=== PATIENT | male | born 1975 | race Asian ===

== ENCOUNTER → 2019-01-13 12:45 | Outpatient (CLI) | payer OTHER, SELFPAY ==
[2019-01-13 12:49] LABS: Bacteria Urine None Seen; RBC Urine None Seen (0-5/HPF)
[2019-01-13 13:13] LABS: Appearance Urine UA CLEAR; Bilirubin Urine UA NEGATIVE (NEGATIVE); Color Urine UA YELLOW; Glucose Urine UA NEGATIVE (Negative); Ketones Urine UA NEGATIVE (NEGATIVE); Leukocyte Esterase Urine UA NEGATIVE (NEGATIVE); Nitrite Urine UA NEGATIVE (Negative); Occult Blood Urine UA TRACE-INTACT (Negative); Protein Urine UA 1+ (Negative); Specific Gravity Urine UA 1.025 (1.000-1.035); Urobilinogen Urine UA 0.2 E.U./dL (0.2); pH Urine UA 5.5 (4.5-8.0)
[2019-01-13 13:16] LABS: Hematocrit 50.3 % (41-53); Hemoglobin 17.3 g/dL (13.5-17.5); Mean Corpuscular HGB Conc 34.3 % (30-36); Mean Corpuscular Volume 90.3 fL (80-100); Platelet Count 192 X10^3/uL (150-400); Red Blood Cell Count 5.57 X10^6/uL (4.5-5.9); Red Cell Distribution Width 12.8 % (11.6-14.8); White Blood Cell Count 7.2 X10^3/uL (4.5-11.0)
[2019-01-13 13:45] LABS: Alanine Aminotransferase 71 IU/L (21-72); Albumin 4.6 g/dL (3.5-5.0); Albumin Globulin Ratio 1.4 (1.0-2.8); Alkaline Phosphatase 116 U/L (38-126); Aspartate Aminotransferase 39 IU/L (17-59); BUN Creatinine Ratio 14.4 (6-22); Bilirubin Total 0.7 mg/dL (0.2-1.3); Blood Urea Nitrogen 13 mg/dL (9-20); Calcium 9.1 mg/dL (8.4-10.2); Carbon Dioxide 25 mmol/L (22-32); Chloride 105 mmol/L (98-107); Cholesterol 176 mg/dL (140-199); Estimated Glomerular Filt Rate > 60.0 mL/min (>60); Globulin 3.3 g/dL (1.7-4.1); Glucose 118 mg/dL (70-100); HDL Cholesterol 37 mg/dL (40-60); HEMOLYSIS < 15 (0-50); LDL Cholesterol Calculated 94 mg/dL (<100); Potassium 4.1 mmol/L (3.4-5.1); Sodium 141 mmol/L (137-145); Total Protein 7.9 g/dL (6.3-8.2); Triglycerides 226 mg/dL (35-150)
[2019-01-13 14:12] LABS: Culture Indicated Urine Cult Not Indicated; Mucus Urine 1+ (Negative); WBC Urine 1-5/HPF (0-5/HPF)
[2019-01-13 14:16] LABS: Prostate Specific Antigen Scrn 3.53 ng/mL (0.1-4.0); TSH w/ Reflex to FT4 1.75 uIU/mL (0.47-4.68)
[2019-01-13 14:34] LABS: Vitamin B12 609 pg/mL (239-931)
[2019-01-15 16:00] LABS: Hepatitis A Antibody Total Nonreactive (Nonreactive)
[2019-01-15 16:18] LABS: Hepatitis B Surf AB Imm QUANT < 5 mIU/mL (> 9)
[2019-01-16 23:48] LABS: Testosterone Total 410 ng/dL (250-1100)
== END ==
PROVIDERS: PCP Nurse Practitioner Family; Visit Provider Nurse Practitioner Family
DX: Z01.84 Encounter for antibody response examination (principal); Z13.6 Encounter for screening for cardiovascular disorders; R53.83 Other fatigue; R39.12 Poor urinary stream
CPT/HCPCS: 36415; 80053; 80061; 81001; 82607; 84402; 84403; 84443; 85027; 86317; 86708; G0103

== ENCOUNTER → 2019-04-28 15:46 | Outpatient (CLI) | payer OTHER, SELFPAY ==
[2019-04-28 18:27] LABS: Prostate Specific Antigen 3.29 ng/mL (0.10-4.00)
== END ==
PROVIDERS: Family Provider Nurse Practitioner Family; PCP Nurse Practitioner Family; Visit Provider Urology
DX: N40.0 Benign prostatic hyperplasia without lower urinary tract symptoms (principal)
CPT/HCPCS: 36415; 84153

== ENCOUNTER → 2020-01-19 09:40 | Outpatient (CLI) | payer OTHER, SELFPAY ==
--- NOTE | 2020-01-19 09:43 | DI.RAD.S_ITS ---
PROCEDURE: XR KNEE LT 3V INDICATIONS: left knee pain TECHNIQUE: 3 views of the knee were acquired. COMPARISON: None. FINDINGS: Bones: No fractures or dislocations. No suspicious bony lesions. Mild medial and patellofemoral degenerative compartment narrowing. Patellar spur is noted. Soft tissues: Moderate joint effusion. No suspicious soft tissue calcifications. IMPRESSION: Moderate effusion. Dictated by: Caridad Skinner M.D. on 01/19/2020 at 14:35 Approved by: Caridad Skinner M.D. on 01/19/2020 at 14:36
== END ==
PROVIDERS: Family Provider Nurse Practitioner Family; PCP Nurse Practitioner Family; Referring Provider Nurse Practitioner Family; Visit Provider Nurse Practitioner Family
DX: M25.562 Pain in left knee (principal); M25.462 Effusion, left knee
CPT/HCPCS: 73562

== ENCOUNTER → 2020-01-20 08:53 | Outpatient (CLI) | payer OTHER, SELFPAY ==
[2020-01-20 09:34] LABS: Hematocrit 48.4 % (41-53); Hemoglobin 16.3 g/dL (13.5-17.5); Mean Corpuscular HGB Conc 33.7 % (30-36); Mean Corpuscular Hemoglobin 30.5 PG (26-34); Mean Corpuscular Volume 90.6 fL (80-100); Platelet Count 174 X10^3/uL (150-400); Red Blood Cell Count 5.34 X10^6/uL (4.5-5.9); Red Cell Distribution Width 12.5 % (11.6-14.8); White Blood Cell Count 7.2 X10^3/uL (4.5-11.0)
[2020-01-20 10:07] LABS: Alanine Aminotransferase 79 IU/L (<50); Albumin 4.3 g/dL (3.5-5.0); Albumin Globulin Ratio 1.5 (1.0-2.8); Alkaline Phosphatase 101 U/L (38-126); Aspartate Aminotransferase 44 IU/L (17-59); BUN Creatinine Ratio 14.9 (6-22); Bilirubin Total 0.7 mg/dL (0.2-1.3); Blood Urea Nitrogen 14 mg/dL (9-20); Calcium 8.8 mg/dL (8.4-10.2); Carbon Dioxide 25 mmol/L (22-32); Chloride 104 mmol/L (98-107); Estimated Glomerular Filt Rate > 60.0 mL/min (>60); Globulin 2.9 g/dL (1.7-4.1); Glucose 112 mg/dL (70-100); HEMOLYSIS < 15 (0-50); Potassium 4.3 mmol/L (3.4-5.1); Sodium 137 mmol/L (137-145); Total Protein 7.2 g/dL (6.3-8.2)
[2020-01-20 10:35] LABS: TSH w/ Reflex to FT4 2.81 uIU/mL (0.47-4.68)
== END ==
PROVIDERS: Family Provider Nurse Practitioner Family; PCP Nurse Practitioner Family; Referring Provider Nurse Practitioner Family; Visit Provider Nurse Practitioner Family
DX: Z00.00 Encounter for general adult medical examination without abnormal findings (principal); L65.9 Nonscarring hair loss, unspecified
CPT/HCPCS: 36415; 80053; 83036; 84443; 85027

== ENCOUNTER 2020-09-04 16:18 | Emergency (ER) | payer OTHER, SELFPAY ==
[2020-09-04 16:31] VITALS: TEMP 36.4
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
== END 2020-09-04 19:32 | disposition left against medical advice (07) ==
PROVIDERS: Emergency Provider Emergency Medicine; Family Provider Nurse Practitioner Family; PCP Nurse Practitioner Family
DX: R51.9 Headache, unspecified (principal)
CPT/HCPCS: 99281

== ENCOUNTER 2022-11-19 17:28 | Emergency (ER) | payer OTHER, SELFPAY ==
[2022-11-19] VITALS (8 sets, daily range): BP systolic 151–177; BP diastolic 88–96; PULSE 65–86; RESP 15–24; TEMP 36.8; O2SAT 94–99; BMI 32.5
--- NOTE | 2022-11-19 17:58 | DI.RAD.S_ITS ---
PROCEDURE: XR CHEST 1V INDICATIONS: chest pain TECHNIQUE: One view of the chest was acquired. COMPARISON: None. FINDINGS: Surgical changes and devices: None. Lungs and pleura: Lungs are clear. No pleural effusions or pneumothorax. Mediastinum: Mediastinal contours appear normal. Heart size is normal. Bones and chest wall: No suspicious bony lesions. Overlying soft tissues appear unremarkable. IMPRESSION: No acute cardiopulmonary disease. Dictated by: Kirstin Guzmán M.D. on 11/19/2022 at 18:19 Approved by: Kirstin Guzmán M.D. on 11/19/2022 at 18:19
[2022-11-19] MEDS: ASPIRIN 81 MG CHEW TAB 324 MG PO (18:07)
[2022-11-19 18:08] LABS: Prothrombin Time 11.3 SECONDS (10.1-12.7)
[2022-11-19 18:11] LABS: PTT Partial Thromboplastin Tim 34 SECONDS (26-36)
[2022-11-19 18:12] LABS: Alanine Aminotransferase 95 IU/L (<50); Albumin 4.1 g/dL (3.5-5.0); Albumin Globulin Ratio 1.2 (1.0-2.8); Alkaline Phosphatase 96 U/L (38-126); Aspartate Aminotransferase 60 IU/L (17-59); BUN Creatinine Ratio 21.8 (6-22); Bilirubin Total 0.6 mg/dL (0.2-1.3); Blood Urea Nitrogen 17 mg/dL (9-20); Calcium 8.8 mg/dL (8.4-10.2); Carbon Dioxide 27 mmol/L (22-32); Chloride 102 mmol/L (98-107); Creatine Kinase 152 U/L (55-170); Estimated Glomerular Filt Rate > 60 mL/min (>60); Globulin 3.4 g/dL (1.7-4.1); Glucose 126 mg/dL (70-100); HEMOLYSIS 22 (0-50); Lipase 80 U/L (23-300); Magnesium 1.9 mg/dL (1.6-2.3); Potassium 4.1 mmol/L (3.4-5.1); Sodium 137 mmol/L (137-145); Total Protein 7.5 g/dL (6.3-8.2)
[2022-11-19 18:16] LABS: Add Manual Diff / Slide Review NO; Basophils Absolute Auto 0 /uL (0-100); Basophils Percent Auto 0.5 % (0-2); Eosinophils Absolute Auto 100 /uL (0-450); Eosinophils Percent Auto 1.2 % (2-4); Hematocrit 46.4 % (41-53); Lymphocytes Absolute Auto 2100 /uL (1100-4500); Lymphocytes Percent Auto 26.6 % (25-40); Mean Corpuscular HGB Conc 34.6 % (30-36); Mean Corpuscular Hemoglobin 30.6 PG (26-34); Mean Corpuscular Volume 88.6 fL (80-100); Monocytes Absolute Auto 600 /uL (0-900); Monocytes Percent Auto 8.1 % (3-14); Neutrophils Absolute Auto 5100 /uL (1500-7000); Neutrophils Percent Auto 63.6 % (50-75); Platelet Count 179 X10^3/uL (150-400); Red Blood Cell Count 5.24 X10^6/uL (4.5-5.9); Red Cell Distribution Width 12.7 % (11.6-14.8)
[2022-11-19 18:24] LABS: Troponin I < 0.012 ng/mL (0.01-0.034)
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
== END 2022-11-19 20:05 | disposition home or self-care (01) ==
PROVIDERS: Emergency Medicine; Emergency Provider Emergency Medicine; Family Provider Nurse Practitioner Family; PCP Nurse Practitioner Family
DX: R06.02 Shortness of breath (principal); R03.0 Elevated blood-pressure reading, without diagnosis of hypertension
CPT/HCPCS: 36415; 71045; 80053; 82550; 83690; 83735; 84484; 85025; 85610; 85730; 93005; 99284

== ENCOUNTER 2023-03-10 20:11 | Inpatient (IN) | payer OTHER, SELFPAY ==
[2023-03-10] VITALS (19 sets, daily range): BP systolic 125–142; BP diastolic 80–88; PULSE 102–142; RESP 14–27; TEMP 37.4–39.4; O2SAT 93–98; BMI 31.8
--- NOTE | 2023-03-10 20:20 | ED_ITS ---
HPI - General Adult General Chief complaint: Fever Stated complaint: fever s/p prostate biopsy Time Seen by Provider: 03/10/23 20:19 History of Present Illness HPI narrative: 47-year-old male former smoker without chronic medical history presents with fever and shaking chills this evening. He had an outpatient transanal biopsy of his prostate earlier today down in [place]. He denies runny nose, sore throat or cough. He denies any abdominal pain but did have a painful bowel movement, that discomfort has since resolved. He denies any difficulty urinating. He had taken Bactrim prophylactically. He is otherwise well and free of complaint Related Data Home Medications Medication Instructions Recorded Confirmed sulfamethoxazole 800 1 tab PO Q12H 03/10/23 03/10/23 mg-trimethoprim 160 mg tablet Previous Rx's Medication Instructions Recorded econazole 1 % topical cream 1 applictn topical BID #60 grams 03/27/20 Allergies Allergy/AdvReac Type Severity Reaction Status Date / Time No Known Drug Allergies Allergy Verified 11/19/22 17:49 Review of Systems Review of Systems Narrative: GENERAL: See HPI HEENT: Denies sinus pain, ear pain, sore throat, difficulty swallowing, dizziness. RESPIRATORY: Denies dyspnea, cough, wheezing, hemoptysis, sputum. CARDIOVASCULAR: Denies chest pain, palpitations, orthopnea, edema, GASTROINTESTINAL: See HPI : Denies dysuria, frequency, incontinence, hematuria, urinary retention. MUSCULOSKELETAL: denies weakness, joint pain, or bony pain SKIN: Denies rash, skin lesions, or other NEUROLOGIC: Denies weakness, headache, numbness, change in speech, confusion, seizures, incoordination. PSYCHIATRIC: No concerning psychosocial issues. 12 point review of systems is negative except for those stated above Patient History Medical History Elevated ALT measurement Fatigue Hair loss Left anterior knee pain Obstructive sleep apnea Onychomycosis Seasonal allergies Snoring Tinea pedis Surgical History Anesthesia History of surgery Social History Smoking Status: Former smoker Tobacco: How many years used: 16 second hand exposure: Yes (rare) alcohol intake: current substance use type: does not use Smoking Status: Former smoker alcohol intake frequency: a few times a week Substance Use Type: does not use Exam Narrative Exam Narrative: GENERAL: [47] year old patient appears stated age. Well-developed patient, in mild distress. HEAD: Atraumatic. Normocephalic. EYES: Pupils equal round and reactive. Extraocular motions intact. No scleral icterus. No injection or drainage. ENT: Nose without bleeding, purulent drainage. Throat without erythema, tonsil lar hypertrophy or exudate. Airway patent. NECK: Trachea midline. Non tender CARDIOVASCULAR: Tachycardic but regular rhythm without murmurs, gallops, or rubs. RESPIRATORY: Clear to auscultation. Breath sounds equal bilaterally. No wheezes, rales, or rhonchi. GASTROINTESTINAL: Abdomen soft, non-tender, nondistended. EXTREMITIES: No edema or joint tenderness. BACK: Nontender without deformity or crepitance. No flank tenderness. NEURO: AOx3. SKIN: No rash or erythema of visible areas Initial Vital Signs Initial Vital Signs: Vital Signs Temperature 102.5 F H 03/10/23 20:28 Pulse Rate 140 H 03/10/23 20:28 Respiratory Rate 18 03/10/23 20:28 Blood Pressure 142/88 H 03/10/23 20:28 Pulse Oximetry 96 03/10/23 20:28 Oxygen Delivery Method Room Air 03/10/23 20:28 Course Orders Ordered: ED Orders 03/10/23 20:30 Urine Microscopic Stat 03/10/23 20:33 XR chest 1V Stat EKG-12 Lead Stat RT Consult Eval and Treat NOW 03/10/23 20:40 Covid-19 + FLU A/B + RSV - PCR Stat 03/10/23 20:48 Complete Blood Count AUTO DIFF Stat Comprehensive Metabolic Panel Stat Lactate (Lactic Acid) Stat Lipase Stat PTT Partial Thromboplastin Abdif[place]h Stat Procalcitonin Stat Prothrombin Time INR Stat 03/10/23 20:57 Blood Culture Stat Lactated Ringer's (Lactated Ringers) 2,328 mls @ 776 mls/hr 30 ml/kg infuse over 3 hr (2328 ml) IV NOW ONE Stop: 03/10/23 23:36 Last Admin: 03/10/23 21:04 Dose: 776 mls/hr Documented By: MARK Ondansetron HCl (Ondansetron 4 Mg/2 Ml Inj) 4 mg IV NOW PRN PRN Reason: Nausea And Vomiting Ondansetron HCl (Ondansetron 4 Mg Odt) 4 mg SL NOW PRN PRN Reason: Nausea And Vomiting Discontinued Medications Acetaminophen (Acetaminophen 325 Mg Tablet) 975 mg PO NOW ONE Stop: 03/10/23 22:40 Last Admin: 03/10/23 22:43 Dose: 975 mg Documented By: YUNG Sodium Chloride (Normal Saline 0.9%) 1,000 mls @ 1,000 mls/hr IV BOLUS ONE Stop: 03/10/23 21:32 Last Infusion: 03/10/23 21:04 Dose: 0 mls/hr Documented By: Admin: 03/10/23 20:30 Dose: 1,000 mls/hr Documented By: MARK Ceftriaxone Sodium 2,000 mg/ (Sodium Chloride) 100 mls @ 200 mls/hr IV NOW ONE Stop: 03/10/23 20:38 Last Infusion: 03/10/23 21:47 Dose: 0 mls/hr Documented By: Admin: 03/10/23 21:15 Dose: 200 mls/hr Documented By: MARK Ketorolac Tromethamine (Ketorolac 30 Mg/Ml Vial) 15 mg IV NOW ONE Stop: 03/10/23 21:53 Last Admin: 03/10/23 21:56 Dose: 15 mg Documented By: MARK Consultations Consultation #1: Discussed with on-call Urology, happy with typical septic approach, [place] okay for now, no imaging needed. Admit to hospitalist, he is available con sultation as needed Vital Signs Vital signs: Vital Signs - 8 hr 03/10/23 20:28 03/10/23 21:27 03/10/23 21:00 Temperature 102.5 F H 100.4 F H Pulse Rate 140 H 122 H 118 H Respiratory Rate 18 20 18 Blood Pressure 142/88 H 129/80 125/80 Pulse Oximetry 96 94 93 Oxygen Delivery Method Room Air Room Air Room Air 03/10/23 21:56 03/10/23 21:11 03/10/23 21:15 Temperature 99.4 F Pulse Rate 117 H 118 H Respiratory Rate Blood Pressure Pulse Oximetry 93 94 Oxygen Delivery Method Room Air Room Air 03/10/23 21:30 03/10/23 21:30 03/10/23 21:45 Temperature Pulse Rate 118 H Respiratory Rate Blood Pressure 140/83 142/88 H Pulse Oximetry 93 Oxygen Delivery Method Room Air 03/10/23 21:45 03/10/23 22:02 03/10/23 22:15 Temperature Pulse Rate 118 H 110 H 109 H Respiratory Rate 23 20 24 Blood Pressure Pulse Oximetry 94 96 95 Oxygen Delivery Method Room Air Room Air Room Air Medical Decision Making Lab Data 03/10/23 20:48 03/10/23 20:48 Labs: Lab Results 03/10/23 03/10/23 03/10/23 Range/Units 20:30 20:40 20:48 WBC 13.2 H (4.5-11.0) X10^3/uL RBC 5.18 (4.5-5.9) X10^6/uL Hgb 16.1 (13.5-17.5) g/dL Hct 46.5 (41-53) % MCV 89.8 (80-100) fL MCH 31.2 (26-34) PG MCHC 34.7 (30-36) % RDW 13.1 (11.6-14.8) % Plt Count 164 (150-400) X10^3/uL Neut % (Auto) 91.8 H (50-75) % Lymph % (Auto) 5.0 L (25-40) % [place] % (Auto) 2.5 L (3-14) % Eos % (Auto) 0.2 L (2-4) % Baso % (Auto) 0.5 (0-2) % Neut # (Auto) 60086 H (1543-3798) /uL Lymph # (Auto) 700 L (4805-2557) /uL [place] # (Auto) 300 (0-900) /uL Eos # (Auto) 0 (0-450) /uL Baso # (Auto) 100 (0-100) /uL PT (10.1-12.7) SECONDS INR (0.9-1.3) APTT (26-36) SECONDS Sodium (137-145) mmol/L Potassium (3.4-5.1) mmol/L Chloride (98-107) mmol/L Carbon Dioxide (22-32) mmol/L BUN (9-20) mg/dL Creatinine (0.66-1.25) mg/dL Estimated GFR (>60) mL/min BUN/Creatinine Ratio (6-22) Glucose (70-100) mg/dL Lactate (0.7-2.1) mmol/L Calcium (8.4-10.2) mg/dL Total Bilirubin (0.2-1.3) mg/dL AST (17-59) IU/L ALT (<50) IU/L Alkaline Phosphatase (38-126) U/L Total Protein (6.3-8.2) g/dL Albumin (3.5-5.0) g/dL Globulin (1.7-4.1) g/dL Albumin/Globulin Ratio (1.0-2.8) Lipase (23-300) U/L Procalcitonin (<0.5) ng/mL Urine RBC 0-1/hpf (0-5/HPF) Urine WBC 0-1/hpf (0-5/HPF) Ur Squamous Epith Cells None seen (0-5/HPF) Urine Bacteria None seen (None) Ur Culture Indicated? Cult not indicated SARS-CoV-2 (PCR) Negative (Negative) Influenza A (RT-PCR) Flu a negative (NEGATIVE) Influenza B (RT-PCR) Flu b negative (NEGATIVE) RSV (PCR) Negative (Negative) 03/10/23 03/10/23 03/10/23 Range/Units 20:48 20:48 20:48 WBC (4.5-11.0) X10^3/uL RBC (4.5-5.9) X10^6/uL Hgb (13.5-17.5) g/dL Hct (41-53) % MCV (80-100) fL MCH (26-34) PG MCHC (30-36) % RDW (11.6-14.8) % Plt Count (150-400) X10^3/uL Neut % (Auto) (50-75) % Lymph % (Auto) (25-40) % [place] % (Auto) (3-14) % Eos % (Auto) (2-4) % Baso % (Auto) (0-2) % Neut # (Auto) (1618-6331) /uL Lymph # (Auto) (4111-9601) /uL [place] # (Auto) (0-900) /uL Eos # (Auto) (0-450) /uL Baso # (Auto) (0-100) /uL PT 12.5 (10.1-12.7) SECONDS INR 1.1 (0.9-1.3) APTT 33 (26-36) SECONDS Sodium 134 L (137-145) mmol/L Potassium 3.6 (3.4-5.1) mmol/L Chloride 98 (98-107) mmol/L Carbon Dioxide 25 (22-32) mmol/L BUN 16 (9-20) mg/dL Creatinine 1.25 (0.66-1.25) mg/dL Estimated GFR > 60 (>60) mL/min BUN/Creatinine Ratio 12.8 (6-22) Glucose 258 H (70-100) mg/dL Lactate 2.4 H (0.7-2.1) mmol/L Calcium 9.1 (8.4-10.2) mg/dL Total Bilirubin 1.1 (0.2-1.3) mg/dL AST 49 (17-59) IU/L ALT 93 H (<50) IU/L Alkaline Phosphatase 103 (38-126) U/L Total Protein 7.5 (6.3-8.2) g/dL Albumin 4.3 (3.5-5.0) g/dL Globulin 3.2 (1.7-4.1) g/dL Albumin/Globulin Ratio 1.3 (1.0-2.8) Lipase 70 (23-300) U/L Procalcitonin 0.21 (<0.5) ng/mL Urine RBC (0-5/HPF) Urine WBC (0-5/HPF) Ur Squamous Epith Cells (0-5/HPF) Urine Bacteria (None) Ur Culture Indicated? SARS-CoV-2 (PCR) (Negative) Influenza A (RT-PCR) (NEGATIVE) Influenza B (RT-PCR) (NEGATIVE) RSV (PCR) (Negative) Urine Dip Bedside Urine Glucose 100 mg/dl Bedside Urine Bilirubin - Negative Bedside Urine Ketone - Negative Urine Specific [place] 1.020 Bedside Urine Occult Blood + Bedside Urine pH 6 Bedside Urine Protein - Negative Bedside Urine Urobilinogen - Negative Bedside Urine Nitrite - Negative Bedside Urine Leukocytes - Negative Esterase Point of care testing: Urine Dip Bedside Urine Glucose 100 mg/dl Bedside Urine Bilirubin - Negative Bedside Urine Ketone - Negative Urine Specific [place] 1.020 Bedside Urine Occult Blood + Bedside Urine pH 6 Bedside Urine Protein - Negative Bedside Urine Urobilinogen - Negative Bedside Urine Nitrite - Negative Bedside Urine Leukocytes - Negative Esterase MDM Narrative Medical decision making narrative: [47] year old patient presents with sepsis after prostate biopsy Multiple etiologies for patient's symptoms considered including, but not limited to: [Urosepsis versus bacteremia versus other] Prior Charts reviewed in our EMR Primary Historian: patient Labs reviewed and interpreted by myself: Leukocytosis with left shift, initial lactate 2.4, renal functions and lytes within normal Imaging reviewed: Chest x-ray with no acute findings, respiratory swabs negative for COVID, flu and RSV Consultations:Dr. Kirk (urology - see details above). Dr. Khan Patient presents with septic criteria met, early fluids at 30 cc/kilogram of ideal body weight given BMI over 30, lactate, 2 blood cultures and early administration of broad-spectrum antibiotics. Patient improves with initial round of therapies Discharge Plan Departure Patient Disposition: Admitted As Inpatient Clinical Impression: Sepsis, Bacteremia Admit Date/Time: 03/10/23 22:19 Admit Provider: Eric Khan
[2023-03-10] MEDS: SODIUM CHLORIDE 0.9% 1,000 ML 1000 ML IV (20:30)
--- NOTE | 2023-03-10 20:33 | DI.RAD.S_ITS ---
PROCEDURE: XR CHEST 1V INDICATIONS: suspected sepsis TECHNIQUE: One view of the chest was acquired. COMPARISON: [facility], CR, XR CHEST 1V, 11/19/2022, 17:54. FINDINGS: Surgical changes and devices: None. Lungs and pleura: No dense consolidation or pleural effusion. Mediastinum: Mediastinal contours appear normal. Heart size is normal. Bones and chest wall: No suspicious bony lesions. Overlying soft tissues appear unremarkable. IMPRESSION: No acute radiographic abnormality on this single-view chest. Dictated by: Vijay Fox M.D. on 03/10/2023 at 21:36 Approved by: Vijay Fox M.D. on 03/10/2023 at 21:36
[2023-03-10 20:58] LABS: Add Manual Diff / Slide Review NO; Basophils Absolute Auto 100 /uL (0-100); Basophils Percent Auto 0.5 % (0-2); Eosinophils Absolute Auto 0 /uL (0-450); Eosinophils Percent Auto 0.2 % (2-4); Hematocrit 46.5 % (41-53); Hemoglobin 16.1 g/dL (13.5-17.5); Lymphocytes Absolute Auto 700 /uL (1100-4500); Mean Corpuscular HGB Conc 34.7 % (30-36); Mean Corpuscular Hemoglobin 31.2 PG (26-34); Mean Corpuscular Volume 89.8 fL (80-100); Monocytes Absolute Auto 300 /uL (0-900); Monocytes Percent Auto 2.5 % (3-14); Neutrophils Absolute Auto 12100 /uL (1500-7000); Neutrophils Percent Auto 91.8 % (50-75); Platelet Count 164 X10^3/uL (150-400); Red Blood Cell Count 5.18 X10^6/uL (4.5-5.9); Red Cell Distribution Width 13.1 % (11.6-14.8); White Blood Cell Count 13.2 X10^3/uL (4.5-11.0)
[2023-03-10] MEDS: LACTATED RINGERS 2,328 ML 776 ML IV (21:04)
[2023-03-10 21:06] LABS: Bacteria Urine None Seen; Culture Indicated Urine Cult Not Indicated; RBC Urine 0-1/HPF (0-5/HPF); Squamous Epithelial Cell Urine None Seen (0-5/HPF); WBC Urine 0-1/HPF (0-5/HPF)
[2023-03-10 21:11] LABS: INR 1.1 (0.9-1.3); Prothrombin Time 12.5 SECONDS (10.1-12.7)
[2023-03-10 21:14] LABS: PTT Partial Thromboplastin Tim 33 SECONDS (26-36)
[2023-03-10 21:15] LABS: Alanine Aminotransferase 93 IU/L (<50); Albumin 4.3 g/dL (3.5-5.0); Albumin Globulin Ratio 1.3 (1.0-2.8); Alkaline Phosphatase 103 U/L (38-126); Aspartate Aminotransferase 49 IU/L (17-59); BUN Creatinine Ratio 12.8 (6-22); Bilirubin Total 1.1 mg/dL (0.2-1.3); Blood Urea Nitrogen 16 mg/dL (9-20); Calcium 9.1 mg/dL (8.4-10.2); Carbon Dioxide 25 mmol/L (22-32); Chloride 98 mmol/L (98-107); Estimated Glomerular Filt Rate > 60 mL/min (>60); Globulin 3.2 g/dL (1.7-4.1); Glucose 258 mg/dL (70-100); HEMOLYSIS < 15 (0-50); Lactate (Lactic Acid) 2.4 mmol/L (0.7-2.1); Lipase 70 U/L (23-300); Potassium 3.6 mmol/L (3.4-5.1); Sodium 134 mmol/L (137-145); Total Protein 7.5 g/dL (6.3-8.2)
[2023-03-10] MEDS: cefTRIAXone 2,000 MG in SODIUM CHLORIDE 0.9% 100 ML 200 MG IV (21:15)
[2023-03-10 21:29] LABS: Influenza A - CEPHEID Flu A NEGATIVE (NEGATIVE); Influenza B - CEPHEID Flu B NEGATIVE (NEGATIVE); Respiratory Syncytial Virus Negative (Negative)
[2023-03-10 21:30] LABS: COVID-19 CEPHEID 4-PLEX PCR Negative (Negative)
[2023-03-10 21:31] LABS: Procalcitonin 0.21 ng/mL (<0.5)
[2023-03-10] MEDS: KETOROLAC 30 MG/ML VIAL 15 MG IV (21:56)
[2023-03-10] MEDS: ACETAMINOPHEN 325 MG TABLET 975 MG PO (22:43)
--- NOTE | 2023-03-10 22:53 | P.HP_ITS ---
History of Present Illness History of Present Illness Date Patient Seen: 03/10/23 Chief complaint: fever s/p prostate biopsy Narrative: 47 y/o without significant PMH, presents to ED with fever and chills after transanal prostate biopsy. He had several episodes of rectal pain as well. On admission septic, started on IVFs and abx. He had developed weak stream few years ago and only now had biopsy due to postponed procedures during the pandemic. He did not have hematuria, back pain, weight loss or other symptoms up until the biopsy.He was on Flomax 0.4 mg daily. PFSH Medical History Elevated ALT measurement Fatigue Hair loss Left anterior knee pain Obstructive sleep apnea Onychomycosis Seasonal allergies Snoring Tinea pedis Surgical History Anesthesia History of surgery Social History household members: none Smoking Status: Former smoker Tobacco: How many years used: 16 second hand exposure: Yes (rare) alcohol intake: current substance use type: does not use Meds Home Medications and Allergies Home Medications Medication Instructions Recorded Confirmed Type sulfamethoxazole 800 1 tab PO Q12H 03/10/23 03/10/23 History mg-trimethoprim 160 mg tablet tamsulosin 0.4 mg capsule 0.4 mg PO DAILY 03/11/23 03/11/23 History Allergies Allergy/AdvReac Type Severity Reaction Status Date / Time No Known Drug Allergies Allergy Verified 11/19/22 17:49 Review of Systems Constitutional Comments: fever and chills Cardiovascular Comments: w/o palpitations or chest pain Respiratory Comments: w/o shortness of breath Gastrointestinal Comments: w/o complaints Genitourinary Comments: w/o hematochesia or hematuria, had rectal pain, mainly resolved Exam Vital Signs (past 8 hours): - 03/10/23 20:28 03/10/23 21:27 03/10/23 21:00 Temperature 102.5 F H 100.4 F H Pulse Rate 140 H 122 H 118 H Respiratory Rate 18 20 18 Blood Pressure 142/88 H 129/80 125/80 Pulse Oximetry 96 94 93 Oxygen Delivery Method Room Air Room Air Room Air 03/10/23 21:56 03/10/23 21:11 03/10/23 21:15 Temperature 99.4 F Pulse Rate 117 H 118 H Respiratory Rate Blood Pressure Pulse Oximetry 93 94 Oxygen Delivery Method Room Air Room Air 03/10/23 21:30 03/10/23 21:30 03/10/23 21:45 Temperature Pulse Rate 118 H Respiratory Rate Blood Pressure 140/83 142/88 H Pulse Oximetry 93 Oxygen Delivery Method Room Air 03/10/23 21:45 03/10/23 22:02 03/10/23 22:15 Temperature Pulse Rate 118 H 110 H 109 H Respiratory Rate 23 20 24 Blood Pressure Pulse Oximetry 94 96 95 Oxygen Delivery Method Room Air Room Air Room Air 03/10/23 22:43 Temperature 102.9 F H Pulse Rate Respiratory Rate Blood Pressure Pulse Oximetry Oxygen Delivery Method Oxygen Delivery Method Room Air Const Other: laying in bed in no distress Eyes Other: reactive pupils, eomi Resp Other: Normal respiratory effort Cardio Other: Tachycardic, regular GI Other: abdomen not distended Skin Other: w/o rashes Psych Other: lucid Objective ECG Impression: Sinus Tachycardia Labs 03/10/23 20:48 03/10/23 20:48 Labs: Laboratory Results - last 24 hr 03/10/23 03/10/23 03/10/23 20:30 20:40 20:48 WBC 13.2 H RBC 5.18 Hgb 16.1 Hct 46.5 MCV 89.8 MCH 31.2 MCHC 34.7 RDW 13.1 Plt Count 164 Neut % (Auto) 91.8 H Lymph % (Auto) 5.0 L [place] % (Auto) 2.5 L Eos % (Auto) 0.2 L Baso % (Auto) 0.5 Neut # (Auto) 60894 H Lymph # (Auto) 700 L [place] # (Auto) 300 Eos # (Auto) 0 Baso # (Auto) 100 PT INR APTT Sodium Potassium Chloride Carbon Dioxide BUN Creatinine Estimated GFR BUN/Creatinine Ratio Glucose Lactate Calcium Total Bilirubin AST ALT Alkaline Phosphatase Total Protein Albumin Globulin Albumin/Globulin Ratio Lipase Procalcitonin Urine RBC 0-1/hpf Urine WBC 0-1/hpf Ur Squamous Epith Cells None seen Urine Bacteria None seen Ur Culture Indicated? Cult not indicated SARS-CoV-2 (PCR) Negative Influenza A (RT-PCR) Flu a negative Influenza B (RT-PCR) Flu b negative RSV (PCR) Negative 03/10/23 03/10/23 03/10/23 20:48 20:48 20:48 WBC RBC Hgb Hct MCV MCH MCHC RDW Plt Count Neut % (Auto) Lymph % (Auto) [place] % (Auto) Eos % (Auto) Baso % (Auto) Neut # (Auto) Lymph # (Auto) [place] # (Auto) Eos # (Auto) Baso # (Auto) PT 12.5 INR 1.1 APTT 33 Sodium 134 L Potassium 3.6 Chloride 98 Carbon Dioxide 25 BUN 16 Creatinine 1.25 Estimated GFR > 60 BUN/Creatinine Ratio 12.8 Glucose 258 H Lactate 2.4 H Calcium 9.1 Total Bilirubin 1.1 AST 49 ALT 93 H Alkaline Phosphatase 103 Total Protein 7.5 Albumin 4.3 Globulin 3.2 Albumin/Globulin Ratio 1.3 Lipase 70 Procalcitonin 0.21 Urine RBC Urine WBC Ur Squamous Epith Cells Urine Bacteria Ur Culture Indicated? SARS-CoV-2 (PCR) Influenza A (RT-PCR) Influenza B (RT-PCR) RSV (PCR) Assessment & Plan Assessment and plan (1) Sepsis: Status: Acute (2) UTI (urinary tract infection): Status: Acute Plan: see above (3) Poor urinary stream: Status: Chronic Plan: s/p prostate biopsy - f/u with urology Flomax (4) Obstructive sleep apnea: Status: Chronic Plan: BiPAP (5) Seasonal allergies: Status: Chronic
[2023-03-10 22:56] LABS: Reflexed Lactate in 2 Hours Y
[2023-03-10 23:30] LABS: Lactate 2HR (Lactic Acid Rflx) 4.1 mmol/L (0.7-2.1)
[2023-03-11] VITALS (88 sets, daily range): BP systolic 100–158; BP diastolic 62–89; PULSE 97–152; RESP 12–29; TEMP 37.1–38.3; O2SAT 86–97
[2023-03-11] MEDS: LACTATED RINGERS 1,000 ML 150 ML IV ×3 (01:11→20:06)
[2023-03-11 05:26] LABS: Add Manual Diff / Slide Review NO; BUN Creatinine Ratio 11.9 (6-22); Basophils Absolute Auto 0 /uL (0-100); Blood Urea Nitrogen 15 mg/dL (9-20); Calcium 8.8 mg/dL (8.4-10.2); Carbon Dioxide 23 mmol/L (22-32); Chloride 102 mmol/L (98-107); Eosinophils Absolute Auto 0 /uL (0-450); Eosinophils Percent Auto 0.1 % (2-4); Estimated Glomerular Filt Rate > 60 mL/min (>60); Glucose 148 mg/dL (70-100); HEMOLYSIS < 15 (0-50); Hematocrit 43.5 % (41-53); Lymphocytes Absolute Auto 500 /uL (1100-4500); Mean Corpuscular HGB Conc 34.6 % (30-36); Mean Corpuscular Hemoglobin 31.1 PG (26-34); Mean Corpuscular Volume 89.9 fL (80-100); Monocytes Absolute Auto 100 /uL (0-900); Neutrophils Absolute Auto 11000 /uL (1500-7000); Neutrophils Percent Auto 94.9 % (50-75); Platelet Count 97 X10^3/uL (150-400); Potassium 3.4 mmol/L (3.4-5.1); Red Blood Cell Count 4.83 X10^6/uL (4.5-5.9); Red Cell Distribution Width 12.8 % (11.6-14.8); Sodium 133 mmol/L (137-145); White Blood Cell Count 11.6 X10^3/uL (4.5-11.0)
[2023-03-11 06:24] LABS: Lactate (Lactic Acid) 4.2 mmol/L (0.7-2.1)
[2023-03-11 06:25] LABS: Reflexed Lactate in 2 Hours Y
[2023-03-11 07:07] LABS: Lactate 2HR (Lactic Acid Rflx) 3.6 mmol/L (0.7-2.1)
--- NOTE | 2023-03-11 10:45 | PC.NURSE ---
Addendum entered by Kinga Paz R.N. 03/11/23 14:17: Oral temp 100.9 - provider aware. Addendum entered by Kinga Paz R.N. 03/11/23 12:58: Pt labs resulted with critical lactate of 4.6, mg 1.0, creatinine increased and WBC increased. Relayed labs to provider and notified pharmacy. Original Note: In am, spoke with doctor regarding pt's most recent lactate level of 3.6 (redraw) and asked provider when the next lab should be. Provider placed lab orders for 1200. Microbiology reported critical lab of E. coli in blood cultures. RN reported this to provider.
[2023-03-11 10:46] LABS: CTX-M Resistance Not Detected (Not Detect); IMP Resistance Not Detected (Not Detect); KPC Resistance Not Detected (Not Detect); mcr-1 Resistance Not Detected (Not Detect)
[2023-03-11 10:47] LABS: Acinetobacter calcoa-baumannii Not Detected (Not Detect); Bacteroides fragilis Not Detected (Not Detect); Enterobacter cloacae complex Not Detected (Not Detect); Enterobacterales DETECTED (Not Detect); Enterococcus faecalis Not Detected (Not Detect); Enterococcus faecium Not Detected (Not Detect); Klebsiella aerogenes Not Detected (Not Detect); Listeria monocytogenes Not Detected (Not Detect); NDM Resistance Not Detected (Not Detect); OXA-48-like Resistance Not Detected (Not Detect); Proteus species Not Detected (Not Detect); Salmonella species Not Detected (Not Detect); Staphylococcus epidermidis Not Detected (Not Detect); Staphylococcus lugdunensis Not Detected (Not Detect); Staphylococcus species Not Detected (Not Detect); Streptococcus agalactiae (Gr B Not Detected (Not Detect); Streptococcus pneumonia Not Detected (Not Detect); Streptococcus pyogenes (Gr A) Not Detected (Not Detect); Streptococcus species Not Detected (Not Detect); VIM Resistance Not Detected (Not Detect)
[2023-03-11 10:48] LABS: Candida albicans Not Detected (Not Detect); Candida auris Not Detected (Not Detect); Candida glabrata Not Detected (Not Detect); Candida krusei Not Detected (Not Detect); Candida parapsilosis Not Detected (Not Detect); Candida tropicalis Not Detected (Not Detect); Cryptococcus neoformans/gatti Not Detected (Not Detect); Haemophilus influenzae Not Detected (Not Detect); Neisseria meningitidis Not Detected (Not Detect); Pseudomonas aeruginosa Not Detected (Not Detect); Serratia marcescens Not Detected (Not Detect); Stenotrophomonas maltophilia Not Detected (Not Detect)
--- NOTE | 2023-03-11 11:15 | P.PN_ITS ---
Subjective Subjective Interval history: 47 M admitted with sepsis after prostate biopsy. Blood cultures positive for E. coli this AM. He feels ill, but denies rectal pain, abdominal pain. He feels a bit nauseous but no vomiting. Exam Vital Signs (past 8 hours): - 03/11/23 03:30 03/11/23 03:45 03/11/23 04:00 Temperature Pulse Rate 118 H 120 H 119 H Respiratory Rate 24 25 H 24 Blood Pressure Pulse Oximetry 91 94 93 Oxygen Delivery Method Oxygen Flow Rate 03/11/23 04:00 03/11/23 04:15 03/11/23 04:30 Temperature Pulse Rate 117 H 115 H Respiratory Rate 25 H 24 Blood Pressure 114/72 Pulse Oximetry 93 94 Oxygen Delivery Method Oxygen Flow Rate 03/11/23 04:45 03/11/23 05:00 03/11/23 05:00 Temperature Pulse Rate 115 H 117 H Respiratory Rate 24 27 H Blood Pressure 102/68 Pulse Oximetry 93 92 Oxygen Delivery Method Oxygen Flow Rate 03/11/23 05:15 03/11/23 05:30 03/11/23 05:45 Temperature Pulse Rate 116 H 113 H 114 H Respiratory Rate 22 25 H 24 Blood Pressure Pulse Oximetry 94 94 86 L Oxygen Delivery Method Oxygen Flow Rate 03/11/23 06:00 03/11/23 06:00 03/11/23 06:15 Temperature Pulse Rate 115 H 112 H Respiratory Rate 25 H 22 Blood Pressure 110/73 Pulse Oximetry 92 93 Oxygen Delivery Method Oxygen Flow Rate 03/11/23 06:30 03/11/23 06:45 03/11/23 06:51 Temperature Pulse Rate 112 H 110 H 111 H Respiratory Rate 23 21 19 Blood Pressure Pulse Oximetry 93 94 94 Oxygen Delivery Method Oxygen Flow Rate 03/11/23 07:00 03/11/23 07:00 03/11/23 07:01 Temperature Pulse Rate 111 H Respiratory Rate 24 Blood Pressure 103/74 Pulse Oximetry 95 Oxygen Delivery Method Room Air Oxygen Flow Rate 03/11/23 07:15 03/11/23 07:27 03/11/23 07:30 Temperature 99.1 F Pulse Rate 112 H 112 H 111 H Respiratory Rate 20 26 H 25 H Blood Pressure 103/74 Pulse Oximetry 93 93 95 Oxygen Delivery Method Oxygen Flow Rate 0 03/11/23 07:45 03/11/23 08:00 03/11/23 08:00 Temperature Pulse Rate 120 H 108 H Respiratory Rate 23 22 Blood Pressure 108/71 Pulse Oximetry 94 95 Oxygen Delivery Method Oxygen Flow Rate 03/11/23 08:15 03/11/23 08:30 03/11/23 08:45 Temperature Pulse Rate 111 H 110 H 109 H Respiratory Rate 24 24 25 H Blood Pressure Pulse Oximetry 95 94 95 Oxygen Delivery Method Oxygen Flow Rate 03/11/23 09:00 03/11/23 09:00 03/11/23 09:15 Temperature Pulse Rate 112 H 110 H Respiratory Rate 21 25 H Blood Pressure 111/75 Pulse Oximetry 94 91 Oxygen Delivery Method Oxygen Flow Rate 03/11/23 09:30 03/11/23 09:45 03/11/23 10:00 Temperature Pulse Rate 108 H 110 H Respiratory Rate 12 21 Blood Pressure 103/62 Pulse Oximetry 94 94 Oxygen Delivery Method Oxygen Flow Rate 03/11/23 10:00 03/11/23 10:15 03/11/23 10:30 Temperature Pulse Rate 104 H 104 H 107 H Respiratory Rate 25 H 20 28 H Blood Pressure Pulse Oximetry 93 94 93 Oxygen Delivery Method Oxygen Flow Rate 03/11/23 10:45 03/11/23 10:55 03/11/23 10:55 Temperature Pulse Rate 103 H 104 H Respiratory Rate 16 27 H Blood Pressure 108/74 Pulse Oximetry 96 96 Oxygen Delivery Method Oxygen Flow Rate 03/11/23 11:00 03/11/23 11:00 03/11/23 11:10 Temperature 99.8 F H Pulse Rate 104 H Respiratory Rate 25 H Blood Pressure 113/75 Pulse Oximetry 96 Oxygen Delivery Method Oxygen Flow Rate Oxygen Delivery Method Room Air Oxygen Flow Rate 0 Narrative Exam Narrative: General:? Patient is well developed and well nourished, in no distress at this time, though mildly ill appearing HEENT:? Normocephalic, atraumatic, extraocular muscles intact, oral pharynx is clear and mucous membranes are moist. Chest:? Normal AP diameter and contour without kyphoscoliosis, no tachypnea, equal chest rise bilaterally. Lungs:? CTA b/l no wheezing rhonchi or rales. Cardio:?RRR no m/r/g. Abdomen: S NT ND. Musculoskeletal:? Muscle strength and tone are equal within normal limits, no deformity. Extremities: No edema or joint effusions. No cyanosis or clubbing. Skin:? Pale,? Warm to touch,dry and intact without rashes, ulcerations or petechiae.? Neuro:? Alert and orientated x3,? sensation to touch intact in all extremities, no gross deficits noted of cranial nerves. Psych:? Patient has a well-kept appearance, appropriate affect, mental status attitude thought context and judgment are appropriate for age. Objective Labs 03/11/23 03:45 03/11/23 03:45 Labs: Laboratory Results - last 24 hr 03/10/23 03/10/23 03/10/23 20:30 20:40 20:45 WBC RBC Hgb Hct MCV MCH MCHC RDW Plt Count Neut % (Auto) Lymph % (Auto) [place] % (Auto) Eos % (Auto) Baso % (Auto) Neut # (Auto) Lymph # (Auto) [place] # (Auto) Eos # (Auto) Baso # (Auto) PT INR APTT Sodium Potassium Chloride Carbon Dioxide BUN Creatinine Estimated GFR BUN/Creatinine Ratio Glucose Lactate Calcium Total Bilirubin AST ALT Alkaline Phosphatase Total Protein Albumin Globulin Albumin/Globulin Ratio Lipase Procalcitonin Urine RBC 0-1/hpf Urine WBC 0-1/hpf Ur Squamous Epith Cells None seen Urine Bacteria None seen Ur Culture Indicated? Cult not indicated A.calcoaceticus-baumannii cmplx PCR Not detected Bacteroides fragilis Not detected Jayla albicans (PCR) Not detected Jayla auris (PCR) Not detected C. glabrata (PCR) Not detected C. krusei (PCR) Not detected C. parapsilosis (PCR) Not detected C. tropicalis (PCR) Not detected SARS-CoV-2 (PCR) Negative C. neoform/gattii (PCR) Not detected Enterobacterales (PCR) Detected H E. cloacae complex PCR Not detected Enterococc faecalis PCR Not detected Enterococc faecium PCR Not detected E. coli (PCR) Detected H H. influenzae (PCR) Not detected Influenza A (RT-PCR) Flu a negative Influenza B (RT-PCR) Flu b negative Klebsiella aerogenes (PCR) Not detected Klebsiella oxytoca PCR Not detected Klebsiella pneumoniae Not detected List. monocytogenes PCR Not detected N. meningitidis (PCR) Not detected Proteus species (PCR) Not detected RSV (PCR) Negative Salmonella spp. (PCR) Not detected Serratia marcescens PCR Not detected Staphylococcus sp PCR Not detected Staph aureus (PCR) Not detected mcr-1 Colistin Res Gene PCR Not detected Staph epidermidis (PCR) Not detected Staph lugdunensis PCR Not detected S. maltophilia (PCR) Not detected Streptococcus sp PCR Not detected Group A Strep (PCR) Not detected Strep agalactiae (PCR) Not detected Strep pneumoniae (PCR) Not detected P. aeruginosa (PCR) Not detected blaIMP Car res Gene PCR Not detected KPC-Carbap Res Gene PCR Not detected blaNDM Car Res Gene PCR Not detected OXA-48 Carbapenem Resis Gene (PCR) Not detected blaVIM Car Res Gene PCR Not detected CTX-M Gene Resistance (PCR) Not detected 03/10/23 03/10/23 03/11/23 20:48 22:50 03:45 WBC 13.2 H 11.6 H RBC 5.18 4.83 Hgb 16.1 15.0 Hct 46.5 43.5 MCV 89.8 89.9 MCH 31.2 31.1 MCHC 34.7 34.6 RDW 13.1 12.8 Plt Count 164 97 L Neut % (Auto) 91.8 H 94.9 H Lymph % (Auto) 5.0 L 4.0 L [place] % (Auto) 2.5 L 1.0 L Eos % (Auto) 0.2 L 0.1 L Baso % (Auto) 0.5 0.0 Neut # (Auto) 81584 H 81500 H Lymph # (Auto) 700 L 500 L [place] # (Auto) 300 100 Eos # (Auto) 0 0 Baso # (Auto) 100 0 PT 12.5 INR 1.1 APTT 33 Sodium 134 L 133 L Potassium 3.6 3.4 Chloride 98 102 Carbon Dioxide 25 23 BUN 16 15 Creatinine 1.25 1.26 H Estimated GFR > 60 > 60 BUN/Creatinine Ratio 12.8 11.9 Glucose 258 H 148 H D Lactate 2.4 H 4.1 H* 4.2 H* Calcium 9.1 8.8 Total Bilirubin 1.1 AST 49 ALT 93 H Alkaline Phosphatase 103 Total Protein 7.5 Albumin 4.3 Globulin 3.2 Albumin/Globulin Ratio 1.3 Lipase 70 Procalcitonin 0.21 Urine RBC Urine WBC Ur Squamous Epith Cells Urine Bacteria Ur Culture Indicated? A.calcoaceticus-baumannii cmplx PCR Bacteroides fragilis Jayla albicans (PCR) Jayla auris (PCR) C. glabrata (PCR) C. krusei (PCR) C. parapsilosis (PCR) C. tropicalis (PCR) SARS-CoV-2 (PCR) C. neoform/gattii (PCR) Enterobacterales (PCR) E. cloacae complex PCR Enterococc faecalis PCR Enterococc faecium PCR E. coli (PCR) H. influenzae (PCR) Influenza A (RT-PCR) Influenza B (RT-PCR) Klebsiella aerogenes (PCR) Klebsiella oxytoca PCR Klebsiella pneumoniae List. monocytogenes PCR N. meningitidis (PCR) Proteus species (PCR) RSV (PCR) Salmonella spp. (PCR) Serratia marcescens PCR Staphylococcus sp PCR Staph aureus (PCR) mcr-1 Colistin Res Gene PCR Staph epidermidis (PCR) Staph lugdunensis PCR S. maltophilia (PCR) Streptococcus sp PCR Group A Strep (PCR) Strep agalactiae (PCR) Strep pneumoniae (PCR) P. aeruginosa (PCR) blaIMP Car res Gene PCR KPC-Carbap Res Gene PCR blaNDM Car Res Gene PCR OXA-48 Carbapenem Resis Gene (PCR) blaVIM Car Res Gene PCR CTX-M Gene Resistance (PCR) 03/11/23 06:35 WBC RBC Hgb Hct MCV MCH MCHC RDW Plt Count Neut % (Auto) Lymph % (Auto) [place] % (Auto) Eos % (Auto) Baso % (Auto) Neut # (Auto) Lymph # (Auto) [place] # (Auto) Eos # (Auto) Baso # (Auto) PT INR APTT Sodium Potassium Chloride Carbon Dioxide BUN Creatinine Estimated GFR BUN/Creatinine Ratio Glucose Lactate 3.6 H Calcium Total Bilirubin AST ALT Alkaline Phosphatase Total Protein Albumin Globulin Albumin/Globulin Ratio Lipase Procalcitonin Urine RBC Urine WBC Ur Squamous Epith Cells Urine Bacteria Ur Culture Indicated? A.calcoaceticus-baumannii cmplx PCR Bacteroides fragilis Jayla albicans (PCR) Jayla auris (PCR) C. glabrata (PCR) C. krusei (PCR) C. parapsilosis (PCR) C. tropicalis (PCR) SARS-CoV-2 (PCR) C. neoform/gattii (PCR) Enterobacterales (PCR) E. cloacae complex PCR Enterococc faecalis PCR Enterococc faecium PCR E. coli (PCR) H. influenzae (PCR) Influenza A (RT-PCR) Influenza B (RT-PCR) Klebsiella aerogenes (PCR) Klebsiella oxytoca PCR Klebsiella pneumoniae List. monocytogenes PCR N. meningitidis (PCR) Proteus species (PCR) RSV (PCR) Salmonella spp. (PCR) Serratia marcescens PCR Staphylococcus sp PCR Staph aureus (PCR) mcr-1 Colistin Res Gene PCR Staph epidermidis (PCR) Staph lugdunensis PCR S. maltophilia (PCR) Streptococcus sp PCR Group A Strep (PCR) Strep agalactiae (PCR) Strep pneumoniae (PCR) P. aeruginosa (PCR) blaIMP Car res Gene PCR KPC-Carbap Res Gene PCR blaNDM Car Res Gene PCR OXA-48 Carbapenem Resis Gene (PCR) blaVIM Car Res Gene PCR CTX-M Gene Resistance (PCR) PFSH Medical History Elevated ALT measurement Fatigue Hair loss Left anterior knee pain Obstructive sleep apnea Onychomycosis Seasonal allergies Snoring Tinea pedis Surgical History Anesthesia History of surgery Social History household members: none Smoking Status: Former smoker Tobacco: How many years used: 16 second hand exposure: Yes (rare) alcohol intake: current substance use type: does not use Assessment & Plan Assessment & Plan narrative: 1. Sepsis secondary to E. coli bacteremia secondary to transrectal prostate biopsy with MAKENNA and thrombocytopenia - continue ceftriaxone 2g q24 hours. Follow up final blood cultures. Initial blood cultures E. coli by PCR testing thus far. - initial urinalysis without obvious infection, will recheck UA. - consider imaging if persistent fever - recheck labs and lactate this afternoon. Trend lactate until normal. - follow Plt count with CBC as well. 2. MAKENNA - creatinine 1.26, baseline around 0.8 based on prior values. Likely due to sepsis noted above. 3. Hyperglycemia - check A1c, elevated glucose levels on admission, no history of diabetes. 4. BPH - continue home flomax. 5. Mild hyponatremia - sodium 133, hypovolemic in nature. Continue IV fluids and continue to trend. Code: Full Dispo: Admitted inpatient, possible discharge home in the next 1-2 days depending on fever and improvement with antibiotics.
[2023-03-11 12:19] LABS: Appearance Urine UA CLOUDY; Bilirubin Urine UA NEGATIVE (NEGATIVE); Color Urine UA RED; Glucose Urine UA NEGATIVE (Negative); Ketones Urine UA NEGATIVE (NEGATIVE); Leukocyte Esterase Urine UA TRACE (NEGATIVE); Nitrite Urine UA NEGATIVE (Negative); Occult Blood Urine UA 3+ (Negative); Urobilinogen Urine UA 0.2 E.U./dL (0.2); pH Urine UA 5.5 (4.5-8.0)
[2023-03-11 12:21] LABS: Protein Urine UA 2+ (Negative)
[2023-03-11 12:22] LABS: Bacteria Urine Occasional (0-1); Culture Indicated Urine Specimen Cultured; RBC Urine >100/HPF (0-5/HPF); WBC Urine 1-5/HPF (0-5/HPF)
[2023-03-11 12:34] LABS: Hemoglobin 14.6 g/dL (13.5-17.5); Mean Corpuscular HGB Conc 33.9 % (30-36); Mean Corpuscular Hemoglobin 31.1 PG (26-34); Mean Corpuscular Volume 91.5 fL (80-100); Platelet Count 92 X10^3/uL (150-400); Red Cell Distribution Width 13.1 % (11.6-14.8); White Blood Cell Count 28.3 X10^3/uL (4.5-11.0)
[2023-03-11 12:35] LABS: Add Manual Diff / Slide Review YES
[2023-03-11 12:38] LABS: BUN Creatinine Ratio 9.4 (6-22); Blood Urea Nitrogen 15 mg/dL (9-20); Calcium 8.5 mg/dL (8.4-10.2); Carbon Dioxide 23 mmol/L (22-32); Chloride 100 mmol/L (98-107); Estimated Glomerular Filt Rate 53 mL/min (>60); Glucose 130 mg/dL (70-100); HEMOLYSIS < 15 (0-50); Sodium 133 mmol/L (137-145)
[2023-03-11 12:51] LABS: Lactate (Lactic Acid) 4.6 mmol/L (0.7-2.1)
[2023-03-11 12:54] LABS: Neutrophils Absolute Manual 26036 /uL (3000-5900); Nucleated Red Blood Cells 1 #/Diff; RBC Morphology Normal Morphology; Total Cells Counted 100
[2023-03-11] MEDS: MAGNESIUM SULFATE 4 GM/100 ML PIGGYBACK IV (13:19)
[2023-03-11 13:29] LABS: Squamous Epithelial Cell Urine 0-1 /HPF (0-5/HPF)
--- NOTE | 2023-03-11 14:00 | CM.DANOTE ---
DCP: Chart review for case, met with patient at bedside, they agree to case management assessment. Completed DCP assessment based on information available. Patient is a 47 year old admitted for sepsis, s/p prostate biopsy. States works here in [employer] and brother can be water truck driver home, or he feels he could drive himself home, as his car is here. Lives one block from hospital. PCP: Dr. Crain, [facility]/ Dr. Barfield urology [facility] Payer: [employer] DME: None DCP: Home ad soo Michelle Mukherjee RN, CM Discharge Planning/Care Management CM Discharge Assessment Start: 03/11/23 13:58 Freq: Status: Active Protocol: Document 03/11/23 13:58 BQ (Rec: 03/11/23 14:00 BQ [id number]) Discharge Planning Assessment Assigned Parts Data Writer Michelle Mukherjee RN, CM Advance Directives? No History Provided By Patient,Medical Record Has Patient been admitted in last 30 No days? Prior Living Arrangements House Household Members none Type of transporation used prior to Drives own vehicle admit Independent with ADL's Yes Is patient alert and oriented? Yes Caregiver for Another No Discharge Plan Home Referrals Initiated None needed Whiteboard Updated in Patient Room with Yes name and ext. # of Parts Data Writer Review Status In Process Next Review Type Continued Stay Review
[2023-03-11 14:18] LABS: Reflexed Lactate in 2 Hours Y
[2023-03-11] MEDS: ACETAMINOPHEN 325 MG TABLET 975 MG PO (14:31)
[2023-03-11 18:09] LABS: Lactate (Lactic Acid) 2.3 mmol/L (0.7-2.1)
[2023-03-11 19:59] LABS: Reflexed Lactate in 2 Hours Y
[2023-03-11] MEDS: cefTRIAXone 2,000 MG in SODIUM CHLORIDE 0.9% 100 ML 200 MG IV (20:07)
[2023-03-11] MEDS: TAMSULOSIN 0.4 MG CAPSULE PO (20:07)
[2023-03-12] MEDS: LACTATED RINGERS 1,000 ML 150 ML IV ×2 (02:54→09:42)
[2023-03-12] MEDS: ACETAMINOPHEN 325 MG TABLET 975 MG PO ×2 (02:55→21:16)
[2023-03-12 03:00] VITALS: BP 147/83; PULSE 104; RESP 24; TEMP 37.8; O2SAT 96
[2023-03-12 08:00] VITALS: BP 135/80; PULSE 88; RESP 20; TEMP 36.6; O2SAT 97
[2023-03-12 08:20] LABS: Hemoglobin A1C% w Est Avg Glu 6.4 % (4.0-6.0)
[2023-03-12 12:00] VITALS: BP 133/85; PULSE 97; RESP 19; TEMP 37.2; O2SAT 100
[2023-03-12 12:12] LABS: Add Manual Diff / Slide Review NO; Basophils Absolute Auto 0 /uL (0-100); Basophils Percent Auto 0.2 % (0-2); Eosinophils Absolute Auto 0 /uL (0-450); Eosinophils Percent Auto 0.2 % (2-4); Hematocrit 37.9 % (41-53); Lymphocytes Absolute Auto 1100 /uL (1100-4500); Lymphocytes Percent Auto 6.1 % (25-40); Mean Corpuscular HGB Conc 34.2 % (30-36); Mean Corpuscular Hemoglobin 31.3 PG (26-34); Mean Corpuscular Volume 91.3 fL (80-100); Monocytes Absolute Auto 600 /uL (0-900); Monocytes Percent Auto 3.3 % (3-14); Neutrophils Absolute Auto 16600 /uL (1500-7000); Neutrophils Percent Auto 90.2 % (50-75); Platelet Count 94 X10^3/uL (150-400); Red Blood Cell Count 4.15 X10^6/uL (4.5-5.9); Red Cell Distribution Width 13.1 % (11.6-14.8); White Blood Cell Count 18.4 X10^3/uL (4.5-11.0)
[2023-03-12 12:30] LABS: Blood Urea Nitrogen 15 mg/dL (9-20); Calcium 8.2 mg/dL (8.4-10.2); Carbon Dioxide 27 mmol/L (22-32); Chloride 103 mmol/L (98-107); Estimated Glomerular Filt Rate > 60 mL/min (>60); Glucose 171 mg/dL (70-100); HEMOLYSIS 29 (0-50); Magnesium 2.1 mg/dL (1.6-2.3); Potassium 3.8 mmol/L (3.4-5.1); Sodium 136 mmol/L (137-145)
--- NOTE | 2023-03-12 12:55 | PM.PN.1 ---
Subjective Subjective Interval history: 47 M admitted with sepsis after prostate biopsy. Blood cultures positive for E. coli. He feels ill, but is improved today. Tolerating a diet last fever was yesterday. Awaiting blood culture final results. Exam Vital Signs (past 8 hours): - 03/12/23 08:00 03/12/23 12:00 Temperature 97.9 F 99 F Pulse Rate 88 97 H Respiratory Rate 20 19 Blood Pressure 135/80 133/85 Pulse Oximetry 97 100 Oxygen Delivery Method Room Air Oxygen Flow Rate 0 Narrative Exam Narrative: General:? Patient is well developed and well nourished, in no distress at this time, though mildly ill appearing HEENT:? Normocephalic, atraumatic, extraocular muscles intact, oral pharynx is clear and mucous membranes are moist. Chest:? Normal AP diameter and contour without kyphoscoliosis, no tachypnea, equal chest rise bilaterally. Lungs:? CTA b/l no wheezing rhonchi or rales. Cardio:?RRR no m/r/g. Abdomen: S NT ND. Musculoskeletal:? Muscle strength and tone are equal within normal limits, no deformity. Extremities: No edema or joint effusions. No cyanosis or clubbing. Skin:? Pale,? Warm to touch,dry and intact without rashes, ulcerations or petechiae.? Neuro:? Alert and orientated x3,? sensation to touch intact in all extremities, no gross deficits noted of cranial nerves. Psych:? Patient has a well-kept appearance, appropriate affect, mental status attitude thought context and judgment are appropriate for age. Objective Labs 03/12/23 12:00 03/12/23 12:00 Labs: Laboratory Results - last 24 hr 03/11/23 03/11/23 03/11/23 11:50 12:12 17:35 WBC RBC Hgb Hct MCV MCH MCHC RDW Plt Count Neut % (Auto) Lymph % (Auto) [place] % (Auto) Eos % (Auto) Baso % (Auto) Neut # (Auto) Lymph # (Auto) [place] # (Auto) Eos # (Auto) Baso # (Auto) Sodium Potassium Chloride Carbon Dioxide BUN Creatinine Estimated GFR BUN/Creatinine Ratio Glucose Hemoglobin A1c 6.4 H Lactate 2.3 H Calcium Magnesium Ur Squamous Epith Cells 0-1 /hpf 03/12/23 12:00 WBC 18.4 H RBC 4.15 L Hgb 13.0 L Hct 37.9 L MCV 91.3 MCH 31.3 MCHC 34.2 RDW 13.1 Plt Count 94 L Neut % (Auto) 90.2 H Lymph % (Auto) 6.1 L [place] % (Auto) 3.3 Eos % (Auto) 0.2 L Baso % (Auto) 0.2 Neut # (Auto) 94919 H Lymph # (Auto) 1100 [place] # (Auto) 600 Eos # (Auto) 0 Baso # (Auto) 0 Sodium 136 L Potassium 3.8 Chloride 103 Carbon Dioxide 27 BUN 15 Creatinine 1.15 Estimated GFR > 60 BUN/Creatinine Ratio 13.0 Glucose 171 H Hemoglobin A1c Lactate Calcium 8.2 L Magnesium 2.1 Ur Squamous Epith Cells [facility] Medical History Elevated ALT measurement Fatigue Hair loss Left anterior knee pain Obstructive sleep apnea Onychomycosis Seasonal allergies Snoring Tinea pedis Surgical History Anesthesia History of surgery Social History household members: none Smoking Status: Former smoker Tobacco: How many years used: 16 second hand exposure: Yes (rare) alcohol intake: current substance use type: does not use Assessment & Plan Assessment & Plan narrative: 1. Sepsis secondary to E. coli bacteremia secondary to transrectal prostate biopsy with MAKENNA and thrombocytopenia - continue ceftriaxone 2g q24 hours. Follow up final blood cultures. Initial blood cultures E. coli by PCR testing thus far. - initial urinalysis without obvious infection, repeat UA with hematuria and was reflexed for culture. - consider imaging if persistent fever or persistent leukocytosis, though has improved this afternoon. - lactate improved with fluids and antibiotic therapies. - follow Plt count with CBC as well. 2. MAKENNA - creatinine 1.26, baseline around 0.8 based on prior values. Likely due to sepsis noted above. Improved to 1.15 today. 3. Hyperglycemia, pre-diabetes - A1c 6.4%. elevated glucose levels on admission, no history of diabetes. - counseled on diet and lifestyle modifications. 4. BPH - continue home flomax. 5. Mild hyponatremia - sodium 133, hypovolemic in nature. Continue IV fluids and continue to trend. Now resolved. Can stop IV fluids. Code: Full Dispo: Admitted inpatient, possible discharge home in the next 1-2 days depending on fever and improvement with antibiotics.
[2023-03-12 16:00] VITALS: BP 138/92; PULSE 99; RESP 20; TEMP 37.6; TEMP 38.1; O2SAT 98
[2023-03-12 18:49] VITALS: TEMP 38.1
[2023-03-12 20:49] VITALS: BP 145/89; PULSE 96; RESP 20; O2SAT 96
[2023-03-12] MEDS: cefTRIAXone 2,000 MG in SODIUM CHLORIDE 0.9% 100 ML 200 MG IV (21:15)
[2023-03-12] MEDS: TAMSULOSIN 0.4 MG CAPSULE PO (21:16)
[2023-03-12] MEDS: SODIUM CHLORIDE 0.9% FLUSH 10 ML IV (21:17)
[2023-03-13] VITALS: BP 130/88; PULSE 93; RESP 20; TEMP 37.7; O2SAT 94
[2023-03-13 07:53] VITALS: BP 150/85; PULSE 89; RESP 18; TEMP 37.5; O2SAT 95
--- NOTE | 2023-03-13 08:11 | P.DS_ITS ---
History of Present Illness History of Present Illness Date Patient Seen: 03/13/23 Time Patient Seen: 08:11 Chief complaint: fever s/p prostate biopsy Narrative: Per admitting provider, 47 y/o without significant PMH, presents to ED with fever and chills after transanal prostate biopsy. He had several episodes of rectal pain as well. On admission septic, started on IVFs and abx. He had developed weak stream few years ago and only now had biopsy due to postponed procedures during the pandemic. He did not have hematuria, back pain, weight loss or other symptoms up until the biopsy.He was on Flomax 0.4 mg daily. Discharge Providers Provider Date of admission: 03/10/23 22:19 Discharge Date: 03/13/23 Discharge provider: Ace Hsu DO Summary Hospital Course Discharge Diagnosis: 1. Sepsis secondary to E. coli bacteremia secondary to transrectal prostate biopsy with MAKENNA and thrombocytopenia 2. MAKENNA 3. Hyperglycemia, pre-diabetes 4. BPH 5. Mild hyponatremia Hospital Course: This is a 47 year old male who presented with sepsis after a recent prostate biopsy. Blood cultures grew E. coli, with resistance to bactrim and fluoroquinolones. Based on cultures, he was discharged on oral cefpodoxime after improvement with ceftriaxone here in the hospital. His symptoms had largely improved and fever curve continued to downtrend. WBC showed improvement, MAKENNA resolved prior to discharge. He elected for discharge home after discussion of continued monitoring or discharge home. A1c was checked due to elevated glucose levels and was 6.4%, he was counseled on dietary changes and lifestyle modifications. Time Spent with Patient Time spent: Greater than 30 minutes Exam Vital Signs (past 8 hours): - 03/13/23 07:53 Temperature 99.5 F Pulse Rate 89 Respiratory Rate 18 Blood Pressure 150/85 H Pulse Oximetry 95 Oxygen Flow Rate 0 Oxygen Delivery Method Room Air Oxygen Flow Rate 0 Narrative Exam Narrative: General:? Patient is well developed and well nourished, in no distress at this time, though mildly ill appearing HEENT:? Normocephalic, atraumatic, extraocular muscles intact, oral pharynx is clear and mucous membranes are moist. Chest:? Normal AP diameter and contour without kyphoscoliosis, no tachypnea, equal chest rise bilaterally. Lungs:? CTA b/l no wheezing rhonchi or rales. Cardio:?RRR no m/r/g. Abdomen: S NT ND. Musculoskeletal:? Muscle strength and tone are equal within normal limits, no deformity. Extremities: No edema or joint effusions. No cyanosis or clubbing. Skin:? Pale,? Warm to touch,dry and intact without rashes, ulcerations or petechiae.? Neuro:? Alert and orientated x3,? sensation to touch intact in all extremities, no gross deficits noted of cranial nerves. Psych:? Patient has a well-kept appearance, appropriate affect, mental status attitude thought context and judgment are appropriate for age. Objective Labs 03/12/23 12:00 03/12/23 12:00 Labs: Laboratory Results - last 24 hr 03/11/23 03/12/23 12:12 12:00 WBC 18.4 H RBC 4.15 L Hgb 13.0 L Hct 37.9 L MCV 91.3 MCH 31.3 MCHC 34.2 RDW 13.1 Plt Count 94 L Neut % (Auto) 90.2 H Lymph % (Auto) 6.1 L Daniels % (Auto) 3.3 Eos % (Auto) 0.2 L Baso % (Auto) 0.2 Neut # (Auto) 12091 H Lymph # (Auto) 1100 Daniels # (Auto) 600 Eos # (Auto) 0 Baso # (Auto) 0 Sodium 136 L Potassium 3.8 Chloride 103 Carbon Dioxide 27 BUN 15 Creatinine 1.15 Estimated GFR > 60 BUN/Creatinine Ratio 13.0 Glucose 171 H Hemoglobin A1c 6.4 H Calcium 8.2 L Magnesium 2.1 PFSH Medical History Elevated ALT measurement Fatigue Hair loss Left anterior knee pain Obstructive sleep apnea Onychomycosis Seasonal allergies Snoring Tinea pedis Surgical History Anesthesia History of surgery Social History household members: none Smoking Status: Former smoker Tobacco: How many years used: 16 second hand exposure: Yes (rare) alcohol intake: current substance use type: does not use Discharge Plan Discharge Plan Patient Disposition: Home Provider Discharge Comment: You were admitted to the hospital after a blood stream infection after prostate biopsy. Cultures were resistant to the antibiotic prescribed for prophylaxis, you are being discharged on a week of another antibiotic. Continue to take tylenol or motrin for pain or mild fever, if worsening do not hesitate to reach out to your primary care provider or urologist for further recommendations. You were found to have pre-diabetes, follow up with primary care for recheck of this within the next few months. Recommend working on decreasing carbohydrate intake to help lower overall blood sugars. Discharge orders & Medications Prescriptions: New cefpodoxime 200 mg tablet 200 mg PO BID 7 Days Qty: 14 0RF Rx Instructions: must administer with a meal/food Continued tamsulosin 0.4 mg capsule 0.4 mg PO DAILY Patient Comments: takes nightly Discontinued sulfamethoxazole-trimethoprim 800-160 mg Tablet 1 tab PO Q12H Patient Comments: last dose supposed to be tomorrow morning Diet/Activity/Treatments Diet: Diet as Tolerated, Regular and Carb-consistent/Diabetic Activity: As tolerated Visit Report/Discharge Packet Instructions: DI for Sepsis -- Adult, What to Eat if You Have Diabetes Stand Alone Forms: Patient Portal/API, Stroke Signs & Symptoms Discharges patient from system. Discharge Date/Time: 03/13/23 09:40
[2023-03-13] MEDS: SODIUM CHLORIDE 0.9% FLUSH 10 ML IV (08:37)
--- NOTE | 2023-03-13 08:40 | CM.DPC ---
DCP Cont. Reviewed chart for status updates. Met with pt at bedside to assess any further d/c needs. Pt presents as dressed, alert, states feeling ready to go home/feeling much better. No further d/c needs identified at this time.
== END 2023-03-13 09:40 | disposition home or self-care (01) | DRG 862 ==
LOC: ED 22:05 → AC 22:19 → ICU 23:32
PROVIDERS: Internal Medicine; Admitting Provider Internal Medicine; Emergency Provider Emergency Medicine; Referring Provider Emergency Medicine; Visit Provider Internal Medicine
DX: T81.44XA Sepsis following a procedure, initial encounter (principal); A41.51 Sepsis due to Escherichia coli [E. coli]; R65.20 Severe sepsis without septic shock; N39.0 Urinary tract infection, site not specified; N17.9 Acute kidney failure, unspecified; E87.1 Hypo-osmolality and hyponatremia; G47.33 Obstructive sleep apnea (adult) (pediatric); B96.20 Unspecified Escherichia coli [E. coli] as the cause of diseases classified elsewhere; R73.03 Prediabetes; D75.838 Other thrombocytosis; N40.0 Benign prostatic hyperplasia without lower urinary tract symptoms; Z87.891 Personal history of nicotine dependence
CPT/HCPCS: 0241U; 36415; 36592; 71045; 80048; 80053; 81001; 81003; 81015; 83036; 83605; 83690; 83735; 84145; 85007; 85025; 85610; 85730; 87040; 87086; 87154; 87186; 87205; 93005; 96365; 96375; 99284; 99285; J0696; J1885; J3475

== ENCOUNTER 2023-04-10 18:08 | Emergency (ER) | payer OTHER, SELFPAY ==
[2023-03-10 22:25] VITALS: BMI 31.8
[2023-04-10 18:16] VITALS: BP 178/96; PULSE 107; RESP 18; TEMP 36.3; O2SAT 96; BMI 33.2
--- NOTE | 2023-04-10 18:23 | DI.RAD.S_ITS ---
PROCEDURE: XR CHEST 1V INDICATIONS: suspected sepsis TECHNIQUE: One view of the chest was acquired. COMPARISON: [facility], CR, XR CHEST 1V, 03/10/2023, 20:33. FINDINGS: Surgical changes and devices: None. Lungs and pleura: Low lung volumes. There is possible right infrahilar strandy alveolar opacity. No dense consolidation, significant effusion, or pneumothorax. Mediastinum: Mediastinal contours appear normal. Heart size is normal. Bones and chest wall: No suspicious bony lesions. Overlying soft tissues appear unremarkable. IMPRESSION: 1. Low lung volumes accentuate bronchovascular markings. Given this, there may be a right infrahilar airspace opacity. Correlate with auscultation. Consider lateral view when patient is able. Dictated by: Kirstin Guzmán M.D. on 04/10/2023 at 20:39 Approved by: Kirstin Guzmán M.D. on 04/10/2023 at 20:40
[2023-04-10 18:42] LABS: Add Manual Diff / Slide Review NO; Basophils Absolute Auto 0 /uL (0-100); Basophils Percent Auto 0.2 % (0-2); Eosinophils Absolute Auto 0 /uL (0-450); Eosinophils Percent Auto 0.1 % (2-4); Hematocrit 44.5 % (41-53); Hemoglobin 15.2 g/dL (13.5-17.5); Lymphocytes Absolute Auto 1800 /uL (1100-4500); Lymphocytes Percent Auto 10.5 % (25-40); Mean Corpuscular HGB Conc 34.1 % (30-36); Mean Corpuscular Hemoglobin 30.8 PG (26-34); Mean Corpuscular Volume 90.3 fL (80-100); Monocytes Absolute Auto 1500 /uL (0-900); Monocytes Percent Auto 8.7 % (3-14); Neutrophils Absolute Auto 14200 /uL (1500-7000); Neutrophils Percent Auto 80.5 % (50-75); Platelet Count 153 X10^3/uL (150-400); Red Blood Cell Count 4.92 X10^6/uL (4.5-5.9); Red Cell Distribution Width 13.3 % (11.6-14.8); White Blood Cell Count 17.7 X10^3/uL (4.5-11.0)
[2023-04-10 18:47] LABS: INR 1.1 (0.9-1.3); Prothrombin Time 13.1 SECONDS (10.1-12.7)
[2023-04-10 18:50] LABS: PTT Partial Thromboplastin Tim 33 SECONDS (26-36)
[2023-04-10 18:51] LABS: Lactate (Lactic Acid) 1.9 mmol/L (0.7-2.1)
[2023-04-10 18:52] LABS: Alanine Aminotransferase 65 IU/L (<50); Albumin 4.6 g/dL (3.5-5.0); Albumin Globulin Ratio 1.3 (1.0-2.8); Alkaline Phosphatase 83 U/L (38-126); Aspartate Aminotransferase 29 IU/L (17-59); BUN Creatinine Ratio 13.7 (6-22); Bilirubin Total 1.4 mg/dL (0.2-1.3); Blood Urea Nitrogen 13 mg/dL (9-20); Calcium 9.3 mg/dL (8.4-10.2); Carbon Dioxide 25 mmol/L (22-32); Chloride 99 mmol/L (98-107); Estimated Glomerular Filt Rate > 60 mL/min (>60); Globulin 3.5 g/dL (1.7-4.1); Glucose 154 mg/dL (70-100); HEMOLYSIS < 15 (0-50); Lipase 68 U/L (23-300); Potassium 3.8 mmol/L (3.4-5.1); Sodium 135 mmol/L (137-145); Total Protein 8.1 g/dL (6.3-8.2)
[2023-04-10 19:08] LABS: Procalcitonin 0.24 ng/mL (<0.5)
[2023-04-10] MEDS: cefTRIAXone 1,000 MG in SODIUM CHLORIDE 0.9% 100 ML 200 MG IV (20:07)
[2023-04-10] MEDS: SODIUM CHLORIDE 0.9% 1,000 ML 1000 ML IV (20:07)
[2023-04-10 20:21] LABS: Bacteria Urine Moderate (10-30); Culture Indicated Urine Specimen Cultured; RBC Urine 0-1/HPF (0-5/HPF); Squamous Epithelial Cell Urine 1-5 /HPF (0-5/HPF); WBC Urine 30-100/HPF (0-5/HPF)
--- NOTE | 2023-04-10 20:22 | ED.GENADULT ---
HPI - General Adult General Chief complaint: Fever Stated complaint: FEVER T-3/PROSTATE SWOLLEN BURNING SENSATION Time Seen by Provider: 04/10/23 19:05 Source: patient Mode of arrival: Ambulatory History of Present Illness HPI narrative: Patient is a 48-year-old male. He is here for evaluation of a couple days of dysuria to include urgency and frequency and burning when he urinates. He also has periods of time where he feels like he is not emptying his bladder. He is not having any lower back pain but does have a fullness in his perineum. No chest pain. No abdominal pain. No nausea or vomiting. No sore throat. Approximately 3 weeks ago he did have a prostate biopsy. He is not currently on antibiotics. No change in bowel habits. Related Data Home Medications Medication Instructions Recorded Confirmed tamsulosin 0.4 mg capsule 0.4 mg PO DAILY 03/11/23 03/11/23 Previous Rx's Medication Instructions Recorded levofloxacin 500 mg tablet 500 mg PO DAILY 14 days #14 tabs 04/10/23 Allergies Allergy/AdvReac Type Severity Reaction Status Date / Time No Known Drug Allergies Allergy Verified 04/10/23 18:16 Review of Systems Review of Systems ROS Unobtainable: All systems reviewed & are unremarkable except as noted in HPI and below Patient History Medical History Tinea pedis Onychomycosis Elevated ALT measurement Left anterior knee pain Hair loss Obstructive sleep apnea Seasonal allergies Snoring Fatigue Surgical History Anesthesia History of surgery Social History household members: none Smoking Status: Former smoker Tobacco: How many years used: 16 second hand exposure: Yes (rare) alcohol intake: current substance use type: does not use Smoking Status: Former smoker alcohol intake frequency: a few times a month Substance Use Type: does not use Exam Initial Vital Signs Initial Vital Signs: Vital Signs Temperature 97.3 F L 04/10/23 18:16 Pulse Rate 107 H 04/10/23 18:16 Respiratory Rate 18 04/10/23 18:16 Blood Pressure 178/96 H 04/10/23 18:16 Pulse Oximetry 96 04/10/23 18:16 Oxygen Delivery Method Room Air 04/10/23 18:16 Const General: cooperative, comfortable and No ill appearing [facility] Head: normal to inspection and normocephalic Resp Effort & Inspection: normal respiratory effort and not tachypneic Auscultation: clear to auscultation bilaterally Cardio Rate: regular rate Rhythm: regular rhythm GI Inspection: normal to inspection and non-distended Rectal Exam: prostate abnormal (Boggy and tender to palpation) Back/Spine/Pelvis Back: No CVA tenderness Skin General: no rashes or lesions noted Neuro General: patient alert, patient awake and moves all extremities Extrem General: normal to inspection and capillary refill normal Course Orders Ordered: ED Orders 04/10/23 19:25 Blood Culture Stat 04/10/23 20:09 Urine Culture Stat Urine Microscopic Stat 04/10/23 21:00 Covid-19 + FLU A/B + RSV - PCR Stat Discontinued Medications Sodium Chloride (Normal Saline 0.9%) 1,000 mls @ 1,000 mls/hr IV BOLUS ONE Stop: 04/10/23 19:22 Last Infusion: 04/10/23 21:07 Dose: Infused Documented By: Admin: 04/10/23 20:07 Dose: 1,000 mls/hr Documented By: CHANNING Ceftriaxone Sodium 1,000 mg/ (Sodium Chloride) 100 mls @ 200 mls/hr IV NOW ONE Stop: 04/10/23 19:06 Last Infusion: 04/10/23 20:37 Dose: Infused Documented By: Admin: 04/10/23 20:07 Dose: 200 mls/hr Documented By: CHANNING Sodium Chloride (Normal Saline 0.9%) 1,000 mls @ 500 mls/hr IV BOLUS ONE Stop: 04/10/23 21:05 Ondansetron HCl (Ondansetron 4 Mg/2 Ml Inj) 4 mg IV NOW PRN PRN Reason: Nausea And Vomiting Ondansetron HCl (Ondansetron 4 Mg Odt) 4 mg SL NOW PRN PRN Reason: Nausea And Vomiting Vital Signs Vital signs: Vital Signs - 8 hr 04/10/23 20:29 04/10/23 20:58 04/10/23 20:59 Temperature 98.3 F Pulse Rate 83 Respiratory Rate Blood Pressure 142/87 H Pulse Oximetry 100 Oxygen Delivery Method 04/10/23 20:59 04/10/23 21:00 04/10/23 21:00 Temperature Pulse Rate 81 79 Respiratory Rate Blood Pressure 145/87 H Pulse Oximetry 98 97 Oxygen Delivery Method 04/10/23 22:37 Temperature Pulse Rate 85 Respiratory Rate 18 Blood Pressure 167/94 H Pulse Oximetry 98 Oxygen Delivery Method Room Air Medical Decision Making Lab Data Lab results reviewed: Yes I reviewed the patient's lab results. 04/10/23 18:30 04/10/23 18:30 Labs: Lab Results 04/10/23 04/10/23 04/10/23 Range/Units 18:30 20:09 21:00 WBC 17.7 H (4.5-11.0) X10^3/uL RBC 4.92 (4.5-5.9) X10^6/uL Hgb 15.2 (13.5-17.5) g/dL Hct 44.5 (41-53) % MCV 90.3 (80-100) fL MCH 30.8 (26-34) PG MCHC 34.1 (30-36) % RDW 13.3 (11.6-14.8) % Plt Count 153 (150-400) X10^3/uL Neut % (Auto) 80.5 H (50-75) % Lymph % (Auto) 10.5 L (25-40) % [place] % (Auto) 8.7 (3-14) % Eos % (Auto) 0.1 L (2-4) % Baso % (Auto) 0.2 (0-2) % Neut # (Auto) 11016 H (3939-0787) /uL Lymph # (Auto) 1800 (4543-9757) /uL [place] # (Auto) 1500 H (0-900) /uL Eos # (Auto) 0 (0-450) /uL Baso # (Auto) 0 (0-100) /uL PT 13.1 H (10.1-12.7) SECONDS INR 1.1 (0.9-1.3) APTT 33 (26-36) SECONDS Sodium 135 L (137-145) mmol/L Potassium 3.8 (3.4-5.1) mmol/L Chloride 99 (98-107) mmol/L Carbon Dioxide 25 (22-32) mmol/L BUN 13 (9-20) mg/dL Creatinine 0.95 (0.66-1.25) mg/dL Estimated GFR > 60 (>60) mL/min BUN/Creatinine Ratio 13.7 (6-22) Glucose 154 H (70-100) mg/dL Lactate 1.9 (0.7-2.1) mmol/L Calcium 9.3 (8.4-10.2) mg/dL Total Bilirubin 1.4 H (0.2-1.3) mg/dL AST 29 (17-59) IU/L ALT 65 H (<50) IU/L Alkaline Phosphatase 83 (38-126) U/L Total Protein 8.1 (6.3-8.2) g/dL Albumin 4.6 (3.5-5.0) g/dL Globulin 3.5 (1.7-4.1) g/dL Albumin/Globulin Ratio 1.3 (1.0-2.8) Lipase 68 (23-300) U/L Procalcitonin 0.24 (<0.5) ng/mL Urine RBC 0-1/hpf D (0-5/HPF) Urine WBC 30-100/hpf H (0-5/HPF) Ur Squamous Epith Cells 1-5 /hpf (0-5/HPF) Urine Bacteria Moderate (10-30) H (None) Ur Culture Indicated? Specimen cultured SARS-CoV-2 (PCR) Negative (Negative) Influenza A (RT-PCR) Flu a negative (NEGATIVE) Influenza B (RT-PCR) Flu b negative (NEGATIVE) RSV (PCR) Negative (Negative) Urine Dip Bedside Urine Glucose Negative Bedside Urine Bilirubin - Negative Bedside Urine Ketone - Negative Urine Specific [place] 1.000 Bedside Urine Occult Blood + Bedside Urine pH 6.0 Bedside Urine Protein - Negative Bedside Urine Urobilinogen 0.2 Bedside Urine Nitrite - Negative Bedside Urine Leukocytes +++ 500 Esterase Point of care testing: Urine Dip Bedside Urine Glucose Negative Bedside Urine Bilirubin - Negative Bedside Urine Ketone - Negative Urine Specific [place] 1.000 Bedside Urine Occult Blood + Bedside Urine pH 6.0 Bedside Urine Protein - Negative Bedside Urine Urobilinogen 0.2 Bedside Urine Nitrite - Negative Bedside Urine Leukocytes +++ 500 Esterase MDM Narrative Medical decision making narrative: Patient had a leukocytosis and a urinalysis that is consistent with an infection. He also had a boggy tender prostate which given his history of a prostate biopsy would be concern for prostatitis. Blood cultures were obtained. He was given antibiotics here in the ER. Lactate is unremarkable. Not hypotensive. After fluids and antibiotics he stated that he was feeling much better. Bladder scan shows no indication urinary retention. Given his presentation will start him on antibiotics for treatment of prostatitis. There was no indication for admission to the hospital. I have low suspicion for pyelonephritis based on his exam. He was given return precautions. He expressed understanding and agreement with plan. Discharge Plan Departure Patient Disposition: Home Clinical Impression: Prostatitis Instructions: DI for Acute Prostatitis Activity Restrictions/Additional Instructions: I do recommend that you take the antibiotics as directed. They were sent to [facility]. Contact your primary doctor and also your urologist for a follow-up. Return to the emergency department for new or worsening symptoms. Prescriptions: New levofloxacin 500 mg tablet 500 mg PO DAILY 14 Days Qty: 14 0RF No Action tamsulosin 0.4 mg capsule 0.4 mg PO DAILY Patient Comments: takes nightly Referrals: Miscellaneous,Doctor, [Primary Care Provider] - Stand Alone Forms: Patient Portal/API
[2023-04-10 20:29] VITALS: TEMP 36.8
[2023-04-10 20:58] VITALS: PULSE 83; O2SAT 100
[2023-04-10 20:59] VITALS: BP 142/87; PULSE 81; O2SAT 98
[2023-04-10 21:00] VITALS: BP 145/87; PULSE 79; O2SAT 97
[2023-04-10 21:41] LABS: Influenza A - CEPHEID Flu A NEGATIVE (NEGATIVE); Influenza B - CEPHEID Flu B NEGATIVE (NEGATIVE); Respiratory Syncytial Virus Negative (Negative)
[2023-04-10 21:53] LABS: COVID-19 CEPHEID 4-PLEX PCR Negative (Negative)
[2023-04-10 22:37] VITALS: BP 167/94; PULSE 85; RESP 18; O2SAT 98
== END 2023-04-10 22:38 | disposition home or self-care (01) ==
PROVIDERS: Emergency Provider Emergency Medicine
DX: N41.9 Inflammatory disease of prostate, unspecified (principal); Z20.822 Contact with and (suspected) exposure to COVID-19
CPT/HCPCS: 0241U; 36415; 51798; 71045; 80053; 81003; 81015; 83605; 83690; 84145; 85025; 85610; 85730; 87040; 87077; 87086; 87186; 96365; 99284; J0696

== ENCOUNTER 2023-10-10 18:59 | Emergency (ER) | payer OTHER, SELFPAY ==
[2023-03-10 22:25] VITALS: BMI 31.8
[2023-10-10 19:18] VITALS: BP 158/106; PULSE 85; RESP 16; TEMP 37.2; O2SAT 96; BMI 31.8
--- NOTE | 2023-10-10 20:44 | ED_ITS ---
HPI - General Adult General Chief complaint: Nasal Problem Stated complaint: nose bleeding for 4 days from [facility] Time Seen by Provider: 10/10/23 20:34 Source: patient Mode of arrival: Ambulatory History of Present Illness HPI narrative: Patient is a 48-year-old male who is not on anticoagulation he was not any trauma who is here for evaluation of intermittent bleeding from his nose for the past 4 days. He states he was at a conference in [place] when the symptoms started. His last episode of bleeding was earlier today. He went to the walk- in clinic. They were able to get the bleeding stopped with Afrin and nasal clamp however the patient decided he wanted to come to the emergency department for further evaluation. He denies any trauma. He states he does feel like his nose is dry. Denies recent upper respiratory tract infections and sore throat. Related Data Home Medications Medication Instructions Recorded Confirmed tamsulosin 0.4 mg capsule 0.4 mg PO DAILY 03/11/23 10/10/23 finasteride 5 mg tablet 5 mg PO DAILY 10/10/23 10/10/23 Allergies Allergy/AdvReac Type Severity Reaction Status Date / Time No Known Drug Allergies Allergy Verified 10/10/23 18:40 Review of Systems Review of Systems Narrative: See HPI Patient History Medical History Tinea pedis Onychomycosis Elevated ALT measurement Left anterior knee pain Hair loss Obstructive sleep apnea Seasonal allergies Snoring Fatigue Surgical History Anesthesia History of surgery Social History household members: none Smoking Status: Former smoker Tobacco: How many years used: 16 second hand exposure: Yes (rare) alcohol intake: current substance use type: does not use Smoking Status: Former smoker alcohol intake frequency: a few times a month Substance Use Type: does not use Exam Initial Vital Signs Initial Vital Signs: Vital Signs Temperature 98.9 F 10/10/23 19:18 Pulse Rate 85 10/10/23 19:18 Respiratory Rate 16 10/10/23 19:18 Blood Pressure 158/106 H 10/10/23 19:18 Pulse Oximetry 96 10/10/23 19:18 Oxygen Delivery Method Room Air 10/10/23 19:18 HENMT Nose: external nose normal and other (Clot noted in left nares) Mouth: oral mucosae normal Skin General: no rashes or lesions noted Course Vital Signs Vital signs: Vital Signs - 8 hr 10/10/23 19:18 10/10/23 21:16 Temperature 98.9 F Pulse Rate 85 85 Respiratory Rate 16 18 Blood Pressure 158/106 H 173/99 H Pulse Oximetry 96 95 Oxygen Delivery Method Room Air Room Air Medical Decision Making MDM Narrative Medical decision making narrative: Patient is well-appearing. During his observation time here in the emergency department he had no further bleeding from his nose. I suspect that the bleeding is coming from the left nares as there is a clot in this nose however there is no anterior source found that would be available to be cauterized. Had a discussion with the patient. It I offered to put in a nasal packing to preven from future bleeding however he declined this. We discussed things that he could try at home to include nasal clamps and Afrin. He was given return precautions follow-up instructions. He expressed understanding and agreement. Discharge Plan Departure Patient Disposition: Home Clinical Impression: Epistaxis Instructions: DI for Nosebleed Activity Restrictions/Additional Instructions: If your nose starts to bleed at home continue with the process of using the nasal clamp in the Afrin. Do this has directed. If your symptoms still continue return to the emergency department for further evaluation. You can put Vaseline under your nose as well to help moist in the air. Prescriptions: No Action finasteride 5 mg tablet 5 mg PO DAILY tamsulosin 0.4 mg capsule 0.4 mg PO DAILY Patient Comments: takes nightly Referrals: Miscellaneous,DoctorMD [Primary Care Provider] - Stand Alone Forms: Patient Portal/API
[2023-10-10 21:16] VITALS: BP 173/99; PULSE 85; RESP 18; O2SAT 95
== END 2023-10-10 21:18 | disposition home or self-care (01) ==
PROVIDERS: Emergency Provider Emergency Medicine
DX: R04.0 Epistaxis (principal)
CPT/HCPCS: 99281